=== PATIENT | male | born 1960 | race Caucasian/White ===

== ENCOUNTER 2024-04-12 18:44 | Emergency (ER) | payer OTHER, SELFPAY ==
[2024-04-12 18:47] VITALS: BP 151/80
[2024-04-12 19:10] LABS: % Basophils 0.6 % (0-2); % Eosinophils 1.2 % (0-6); % Immature Granulocytes 0.3 % (0-0.5); % Lymphocytes 11.3 % (20.5-51.1); % Monocytes 9.5 % (1.7-9.3); % Neutrophils 77.1 % (42.2-75.2); Absolute Eosinophils 0.1 10^3/uL (0-0.7); Absolute Lymphocytes 0.8 10^3/uL (1.2-3.4); Absolute Monocytes 0.7 10^3/uL (0.1-0.6); Absolute Neutrophils 5.3 10^3/uL (1.4-6.5); Hematocrit 39.6 % (39.0-52.0); Hemoglobin 13.9 g/dL (13.0-18.0); Mean Corp Hgb Conc. 35.1 g/dL (33.0-37.0); Mean Corpuscular Hgb 30.8 pg (27.0-31.0); Mean Corpuscular Volume 87.6 fL (80.0-94.0); Mean Platelet Volume 11.1 fL (7.4-10.4); Nucleated Red Blood Cells % 0 % (-); Platelet Count 147 10^3/uL (130-400); Red Blood Cell Count 4.52 10^6/uL (4.70-6.10); White Blood Cell Count 6.9 10^3/uL (4.8-10.8)
[2024-04-12 19:25] LABS: Lactic Acid 1.6 mmol/L (0.7-2.0)
[2024-04-12 19:33] LABS: ALT (SGPT) 38 U/L (0-50); AST (SGOT) 43 U/L (17-59); Albumin 4.3 g/dl (3.5-5.0); Alkaline Phosphatase 95 U/L (38-126); Blood Urea Nitrogen 17 mg/dl (9-20); Calcium 9.3 mg/dl (8.4-10.2); Carbon Dioxide 28 mmol/L (22-30); Chloride 99 mmol/L (98-107); Glucose 103 mg/dl (70-99); Sodium 134 mmol/L (135-145); Total Bilirubin 0.4 mg/dl (0.2-1.3); Total Protein 6.9 g/dl (6.3-8.2); eGFR > 60.00
--- NOTE | 2024-04-12 20:58 | ED.GENMED ---
History of Present Illness
General
Chief Complaint: Skin Problem
Time Seen by Provider: 04/12/24 20:46
History of Present Illness
History of Present Illness:
HPI: The patient presents due to worsening right lower quadrant cellulitic changes. He thought he got bit by a bug 5 days ago and was placed on Keflex 2 days ago. There has been no improvement and he feels there is been worsening and he was
concerned because he has fever/chills patient and also reports some discomfort in his back 'that could be something totally unrelated'.
EXAM:
GENERAL: Well appearing in no distress
HEENT: Moist oral mucosa
CARDIOVASCULAR: No murmurs, normal heart rate, regular rhythm, No chest wall tenderness
PULMONARY: No respiratory distress, breath sounds are clear and equal
ABDOMEN: Soft with no peritoneal signs, no tenderness
NEUROLOGIC: Excellent strength all extremities, no coordination deficits
PSYCHIATRIC: Appropriate mental status, normal insight and judgement
EXTREMITIES: Nontender, no edema, moves all extremities equally
SKIN: There is an ovoid area of erythema measuring approximately 4 x 8 cm with a central area of indurated tissue
TIME OF INITIAL ENCOUNTER: 8:45 PM
NUMBER AND COMPLEXITY OF PROBLEMS ADDRESSED AT THE ENCOUNTER
� Chronic conditions affecting care: No significant past medical history, no diabetes
� Acute Exacerbation and/or Progression of Chronic Illness: This is an acute problem
� Differential Diagnosis includes: Cellulitis, abscess, inflammatory changes from bug bite, Lyme disease
AMOUNT AND/OR COMPLEXITY OF DATA TO BE REVIEWED AND ANALYZED
� I performed an independent evaluation of and my interpretation is:
EKG:
CT:
X-rays:
Laboratory Studies: White count and lactic acid are both normal
Other:
� Review of other/old records: CBC in 2016 unremarkable
� Clinical information was obtained by an independent historian:
� Prescriptions/Medications Considered but not given:
� Further testing considered but not performed: Considered draining small fluid collection but it is less than a centimeter and I have very low suspicion that we will be successful with draining any significant amount of fluid
RISK OF COMPLICATIONS AND/OR MORBIDITY OR MORTALITY OF PATIENT MANAGEMENT
� Social determinants of health affecting care: Lives at home with
� Discussion with other providers:
� Escalation of care including admission/observation vs risk of discharge considered: The patient is to continue Keflex for a few more days and we will add doxycycline for both Lyme and MRSA coverage. Considered admission to the
hospital however the patient's white count and lactic and vital signs are not consistent with sepsis.
Past History
Past History
ED Past Medical History: None
ED Past Surgical History: Cardiac (mitral valve replacement)
Social History
Tobacco: Non-smoker
Personal: Partner
Living: with family
Phy Exam
Physical Exam
Physical Exam:
See HPI
Course
Orders/Labs/Results
Orders:
Orders
04/12/24 18:55
Complete Blood Count/With Diff Urgent
Comprehensive Metabolic Panel Urgent
Lactic Acid Urgent
Blood Culture Urgent
TALHA Source: Blood/Venous
Specimen Description:
04/12/24 20:57
Lyme Progressive Urgent
04/13/24 08:00
Doxycycline [Vibramycin] 100 mg PO DAILY
Abnormal Lab Results
04/12/24
18:55
RBC 4.52 L 10^6/uL
(4.70-6.10)
MPV 11.1 H fL
(7.4-10.4)
Absolute Lymphs (auto) 0.8 L 10^3/uL
(1.2-3.4)
Absolute Monos (auto) 0.7 H 10^3/uL
(0.1-0.6)
Neutrophils % 77.1 H %
(42.2-75.2)
Lymphocytes % 11.3 L %
(20.5-51.1)
Monocytes % 9.5 H %
(1.7-9.3)
Sodium 134 L mmol/L
(135-145)
Glucose 103 H mg/dl
(70-99)
04/12/24 18:55
04/12/24 18:55
Vital Signs
Initial and Last Documented VS:
Initial Vital Signs
Temp Pulse Resp BP Pulse Ox
98.6 F 69 20 151/80 99
04/12/24 18:47 04/12/24 18:47 04/12/24 18:47 04/12/24 18:47 04/12/24 18:47
Last Documented Vital Signs
Temp Pulse Resp BP Pulse Ox
98.6 F 69 20 151/80 99
04/12/24 18:47 04/12/24 18:47 04/12/24 18:47 04/12/24 18:47 04/12/24 18:47
*Critical Care Note
Total Time (30-74mins, 75-104mins- exclusive of procedures): Not Applicable
ED Attending Note
-
Portions of this chart may have been created with voice recognition software.� Occasional wrong word or��sound alike� substitutions may have occurred due to the inherent limitations of voice recognition software.
Discharge Plan
Departure
Patient Disposition: Home (Routine Discharge)
Date of Disposition: 04/12/24
Time of Disposition: 20:58
Patient with high blood pressure during this ER visit?: Yes
Discharge Problem:
Cellulitis
Instructions: Cellulitis (Skin Infection), Adult (DC)
Prescriptions:
New
doxycycline monohydrate 100 mg capsule
100 mg PO BID Qty: 20 0RF
No Action
nyxjtpoljli-LH-iuwaqplldkiyy 1 TAB tablet
1 tab PO PRN PRN (Reason: as directed)
ibuprofen 200 MG tablet
400 mg PO .Q4-6HPRN PRN (Reason: pain)
docosahexaenoic acid-epa 1 CAP capsule
1 cap PO DAILY
Vitamin C
1 tab PO DAILY
Vitamin E
1 tab PO DAILY
amoxicillin-pot clavulanate 1 TABLET tablet
1 tab PO Q12 Qty: 19 0RF
Referrals:
Rosie Torrez MD [Family Provider] -
Activity Restrictions/Additional Instructions:
For additional antibacterial coverage, I have added doxycycline. This covers not only MRSA but it also covers Lyme disease. We are testing you for Lyme disease as well. This very well could a bug bite. Fortunately your white blood cell count was
normal and your lactic acid level is normal and your vital signs are not consistent with sepsis. I recommend continuing the Keflex for a few more days while adding the doxycycline for the next week. Limit sun exposure while on doxycycline.
Interventions
Interventions:
*Risk Screen - Suicide Last Done: 04/12/24 18:47
*General Assessment Last Done: 04/12/24 18:47
*Neglect/Abuse Screening Last Done: 04/12/24 18:47
Discharge Date and Time
Print Language: OMANI
[2024-04-12 21:00] VITALS: BP 137/84
[2024-04-12] MEDS: VIBRAMYCIN 100 MG PO (21:24)
[2024-04-13 13:47] LABS: Lyme Antibody Screen, EIA Negative (Negative)
== END 2024-04-12 22:28 | disposition home or self-care (01) ==
LOC: EMR 18:44
PROVIDERS: EMERGENCY PHYSICIAN Emergency Medicine; FAMILY PHYSICIAN Family Medicine
DX: L03.115 Cellulitis of right lower limb (principal); R03.0 Elevated blood-pressure reading, without diagnosis of hypertension; Z95.2 Presence of prosthetic heart valve; M54.9 Dorsalgia, unspecified; Z88.8 Allergy status to other drugs, medicaments and biological substances
CPT/HCPCS: 99283; 80053; 83605; 85025; 86618; 87040

== ENCOUNTER 2024-04-27 06:20 | Day surgery (SDC) | payer OTHER, SELFPAY ==
[2024-04-20 12:21] VITALS: BMI 23.5
[2024-04-27] VITALS (9 sets, daily range): BP systolic 104–140; BP diastolic 41–97; BMI 23.5
[2024-04-27] MEDS: TYLENOL 1000 MG PO (08:23)
[2024-04-27] MEDS: NORMOSOL-R 1000 IV (08:23)
--- NOTE | 2024-04-27 09:00 | W.SUR.PREOP ---
Pre-Operative Surgical Note
-
I have examined this patient prior to the performance of the scheduled procedure.
The patient's condition is unchanged from the time of the current History and
Physical and the patient is able to undergo the scheduled procedure.
--- NOTE | 2024-04-27 11:03 | W.IMMPOSTOP ---
Surgical Immed Post Op Note
-
Primary Surgeon: Kev Reynoso MD
Assisting Surgeon: None
Pre-op Diagnosis: Bilateral inguinal hernia
Post-op Diagnosis: Same
Procedure Performed: Laparoscopic bilateral inguinal hernia repair with mesh (TEP approach)
Anesthesia Type: General
Specimen / Cultures: Left cord lipoma
Estimated Blood Loss: 7 cc
Complications: None
Operative Findings: Patient had a left direct inguinal hernia, as well as a small cord lipoma that was reduced and removed. He had a indirect right inguinal hernia, no cord lipoma. The floor was reinforced with Bard 3D max mid weight mesh.
--- NOTE | 2024-04-27 11:06 | OR.RPT ---
Operative Report
Operative Report
Patient Name: Khang Elias
: 1960
Date of Operation: 04/27/2024
Preoperative Diagnosis: Reducible Inguinal hernia, bilateral
Postoperative Diagnosis: Same
Procedure(s):
Laparoscopic Inguinal Hernia Repair with mesh, bilateral, (TEP approach)
Surgeon(s):
Dr. Reynoso
Hospital Scientist(s):
None
Anesthesia: General
Estimated Blood Loss: 7 cc
Urine Output: None
Drains/Lines/Implants: Large 3D Max Bard Mesh, mid weight
Specimens: left cord lipoma
Indication for surgery: The patient has a history of groin pain and noted on exam to have a Left inguinal Hernia as well as an asymptomatic right inguinal hernia. Following review of therapeutic options they elected to undergo a minimally invasive
repair.
Findings at the time of surgery:
Patient had a left direct hernia, no indirect hernia but there was a small cord lipoma that was reduced and removed. There was no femoral defect on either side. On the right side there was a small right indirect hernia, no direct defect. The
inguinal floors were reinforced with a large BARD 3D max mid weight, uncoated polypropylene mesh
Details of the operation:
After inducing general anesthesia and endotracheal intubation, the patient was prepped and draped in the supine position with both arms tucked. After infiltration with 0.25% Marcaine, a right periumbilical incision was made. Dissection was carried
down to the anterior sheath which was incised and the rectus muscle retracted laterally. An origin balloon was then inserted in through the posterior portion of the rectus into the preperitoneal space. This was insufflated under direct vision and
blunt dissection was therefore achieved in the preperitoneal space. The balloon was then removed and a 12mm Balloon trocar was placed. Two 5-mm ports were also placed in the midline below the camera port. Blunt dissection was used to dissect the
myopectineal orifice with care not to injure the epigastric vessels, gonadals or spermatic cord. Blunt dissection was used to identify the direct, indirect, and femoral spaces.
Left side:
The cord was inspected and an indirect hernia sac was not identified.
There was a small cord lipoma that was reduced and removed.
There was a small weakness in the direct space floor.
There was no femoral herniation.
A large 3D max mid weight mesh was then placed into position and positioned into the appropriate area to cover all 3 defects and secured to Tristen's ligament with 2 absorbable tacks.
Right side:
The cord was inspected and a small indirect hernia sac was noted and reduced.
There was no cord lipoma.
There was no weakness in the direct space floor.
There was no femoral herniation.
A large 3D max mesh was then placed into position and positioned into the appropriate area to cover all 3 defects and secured to Tristen's ligament with 2 absorbable tacks.
The area was then completely infiltrated with 30 cc of Marcaine without epinephrine (0.25%). The insufflation was slowly decreased and the mesh was assured to be in proper position with desufflation. Some intra-abdominal pneumoperitoneum was
evacuated via a small rent made in the posterior rectus sheath. The Deanna trocar site was also closed with 0 PDS suture in a [id number] fashion. The skin sites were all then closed with running subcuticular 4-0 Monocryl suture followed by
dermabond. Inspection of the scrotum revealed both testes to be in position. The patient returned to the recovery room in stable condition. Sponge and instrument counts were correct. No specimen sent to pathology
I was the attending physician and performed the procedure with no assistance. I was present for all portions of the case
Kev Reynoso MD
[2024-04-27] MEDS: MOTRIN 600 MG PO (13:22)
== END 2024-04-27 13:40 | disposition home or self-care (01) ==
LOC: SDS 06:20
PROVIDERS: ATTENDING PHYSICIAN Surgery; FAMILY PHYSICIAN Family Medicine
DX: K40.20 Bilateral inguinal hernia, without obstruction or gangrene, not specified as recurrent (principal); D17.6 Benign lipomatous neoplasm of spermatic cord
CPT/HCPCS: 49650; 88304; 36415; 93005; C1781

== ENCOUNTER → 2024-06-09 11:05 | Outpatient (REF) | payer OTHER, SELFPAY | LOC: RAD 11:05 | PROVIDERS: ATTENDING PHYSICIAN Surgery; FAMILY PHYSICIAN Physician Assistant | DX: R10.31 Right lower quadrant pain (principal); Z09 Encounter for follow-up examination after completed treatment for conditions other than malignant neoplasm | CPT/HCPCS: 72193; Q9967 ==

== ENCOUNTER 2025-07-08 06:24 | Day surgery (SDC) | payer OTHER, SELFPAY | END 2025-07-08 14:18 | disposition home or self-care (01) | LOC: GI 06:24 | PROVIDERS: ATTENDING PHYSICIAN Student in an Organized Health Care Education/Training Program | DX: Z12.11 Encounter for screening for malignant neoplasm of colon (principal); K57.30 Diverticulosis of large intestine without perforation or abscess without bleeding; K64.8 Other hemorrhoids; K63.89 Other specified diseases of intestine; R13.10 Dysphagia, unspecified; K22.2 Esophageal obstruction; K44.9 Diaphragmatic hernia without obstruction or gangrene; D12.3 Benign neoplasm of transverse colon; K63.5 Polyp of colon; Z86.0100 Personal history of colon polyps, unspecified | CPT/HCPCS: 45380; 43249; 43239; 88305 ==